=== PATIENT | female | born 1955 | race Caucasian/White ===

== ENCOUNTER 2024-02-06 09:57 | Emergency (ER) | payer OTHER ==
[2024-02-06 10:30] VITALS: BP 138/81; PULSE 81; RESP 18; TEMP 98.5; BMI 31.2
[2024-02-06] MEDS ORDERED: KETOROLAC TROMETHAMINE 30 MG/1 ML VIAL IM ONE (12:46)
[2024-02-06] MEDS ORDERED: KETOROLAC TROMETHAMINE 30 MG/1 ML VIAL ONE (12:47)
[2024-02-06] MEDS: ACETAMINOPHEN 325 MG TABLET (FP) PO ONE (13:43)
[2024-02-06] MEDS: IBUPROFEN 400 MG TABLET (FP) PO ONE (13:43)
[2024-02-06] MEDS: DIPHTH,PERTUSS(ACELL),TET 0.5 ML DISP.SYRIN IM ONE (15:42)
== END 2024-02-06 16:28 | disposition home or self-care (01) ==
LOC: JER 09:57
DX: M54.2 Cervicalgia (principal); M54.9 Dorsalgia, unspecified; V89.2XXA Person injured in unspecified motor-vehicle accident, traffic, initial encounter; Y92.410 Unspecified street and highway as the place of occurrence of the external cause
CPT/HCPCS: 70450-TC; 71045-TC-FY; 72070-TC-FY; 72100-TC-FY; 72125-TC; 72131-TC; 72170-TC-FY; 73130-TC-RT-FY; 99284-25